=== PATIENT | male | born 1965 | race Hispanic/Latino ===

== ENCOUNTER 2022-01-04 17:17 | Emergency (ER) | payer BC ==
[2022-01-04] MEDS ORDERED: HYDROcodone/Acetaminophen 5/325 mg Tablet ONE (18:02)
== END 2022-01-04 18:47 | disposition home or self-care (01) ==
LOC: ERS 17:17
DX: M51.26 Other intervertebral disc displacement, lumbar region (principal); I10 Essential (primary) hypertension; E78.5 Hyperlipidemia, unspecified; E11.9 Type 2 diabetes mellitus without complications; Z79.84 Long term (current) use of oral hypoglycemic drugs
CPT/HCPCS: 72131

== ENCOUNTER 2023-12-17 10:39 | Observation (INO) | payer BC, OTHER ==
[2023-12-17 11:09] LABS: #Basophils 0.06 10x3/uL (0.0-0.2); %Basophils 0.5 % (0.0-1.0); %Eosinophils 1.1 % (0.0-10.0); %Lymphocytes 11.3 % (21.0-51.0); %Monocytes 11.9 % (0.0-10.0); %Neutrophils 74.6 % (42.0-75.0); Hematocrit 46.4 % (42.0-52.0); Hemoglobin 15.1 g/dL (14.0-18.0); Mean Corpuscular HGB CONC 32.5 g/dL (32.0-36.0); Mean Corpuscular Hemoglobin 27.5 pg (27.0-31.0); Mean Corpuscular Volume 84.4 fL (78.0-98.0); Mean Platelet Volume 10.4 fL (7.4-10.4); Platelet Count 241 10x3/uL (130-400); RBC Distribution Width 15.4 % (11.5-14.5)
[2023-12-17 11:25] LABS: ALT (SGPT) 17 U/L (8-55); AST (SGOT) 16 U/L (5-34); Albumin 3.3 g/dL (3.5-5.0); Alkaline Phosphatase 62 U/L (40-110); Anion Gap 11 mmol/L (10-20); BUN (Urea Nitrogen) 9 mg/dL (8.4-25.7); Bilirubin, Total 0.9 mg/dL (0.2-1.2); Calc. Creatinine Clearance 0 mL/min (70-130); Calcium 8.7 mg/dL (7.8-10.44); Carbon Dioxide 22 mmol/L (22-29); Chloride 106 mmol/L (98-107); Estimated GFR 101; Globulin 4.2 g/dL (2.4-3.5); Glucose 207 mg/dL (70-105); Potassium 4.4 mmol/L (3.5-5.1); Protein, Total 7.5 g/dL (6.0-8.3); Sodium 135 mmol/L (136-145)
[2023-12-17] MEDS ORDERED: Aspirin Chewable 81 MG TAB ONE (13:00)
[2023-12-17] MEDS ORDERED: Dextrose 5% in Water 1,000 ML IV PRN (15:48)
[2023-12-17] MEDS ORDERED: Insulin Lispro 100 UNIT/ML 10 ML VIAL SC PRN ×2 (15:48)
[2023-12-17] MEDS ORDERED: Dextrose 50% Abboject 50 ML SYRINGE SLOW IVP PRN (15:48)
[2023-12-17] MEDS ORDERED: Glucagon 1 MG/ML KIT IM PRN (15:48)
[2023-12-17] MEDS ORDERED: Lorazepam 2 MG/ML VIAL IM PRN (15:54)
[2023-12-17] MEDS ORDERED: Lorazepam 1 MG TAB PO PRN (15:54)
[2023-12-17] MEDS ORDERED: Ondansetron ODT 4 MG TAB PO PRN (15:54)
[2023-12-17] MEDS ORDERED: Multivit, Therapeutic 1 TAB PO SCH (16:00)
[2023-12-17] MEDS ORDERED: Folic Acid 1 MG TAB PO SCH (16:00)
[2023-12-17] MEDS ORDERED: Electrolyte Replacement Protocol 1 EACH FS SCH (16:00)
[2023-12-17] MEDS ORDERED: hydrALAZINE 20 MG/ML VIAL SLOW IVP PRN (16:07)
[2023-12-17] MEDS ORDERED: Senokot S 8.6-50 MG TAB PO PRN (16:09)
[2023-12-17] MEDS ORDERED: Calcium Carbonate 500 MG ChewTAB PO PRN (16:09)
[2023-12-17 16:51] LABS: Phosphorus 3.5 mg/dL (2.3-4.7)
[2023-12-17 16:53] LABS: Magnesium 2.1 mg/dL (1.6-2.6)
[2023-12-17 16:57] LABS: Troponin I Less than 0.010 ng/mL (< 0.028)
[2023-12-17] MEDS: Acetaminophen 325 MG TAB PO PRN (17:52)
[2023-12-17] MEDS: Thiamine HCl 200 MG/2 ML VIAL SLOW IVP SCH (17:53)
[2023-12-17 18:14] VITALS: BP 173/93; TEMP 98
[2023-12-17 18:18] VITALS: BMI 32.9
[2023-12-17 18:36] LABS: Amphetamine Not Detected (NotDetected); Barbiturates Screen Not Detected (NotDetected); Benzodiazepine Screen Not Detected (NotDetected); Cocaine Metabolite Screen Detected (NotDetected); Methadone Not Detected (NotDetected); Methamphetamine Not Detected (NotDetected); Opiate Screen Not Detected (NotDetected); Oxycodone Screen Not Detected (NotDetected); Phencyclidine (PCP) Not Detected (NotDetected); THC/Cannabinoid Screen Detected (NotDetected); Tricyclic Screen Not Detected (NotDetected)
[2023-12-17] MEDS ORDERED: Atorvastatin Calcium 40 MG TAB PO SCH (21:00)
[2023-12-17] MEDS ORDERED: Cyanocobalamin (Vitamin B-12) 1,000 MCG TAB PO SCH (21:00)
[2023-12-18] MEDS ORDERED: Folic Acid 1 MG TAB PO SCH (09:00)
[2023-12-18] MEDS ORDERED: FLU (Fluarix Triv) TS24-25(6MOS UP)/PF 45 MCG/0.5 ML Syringe IM ONE (09:00)
[2023-12-18] MEDS ORDERED: Aspirin 81 mg Enteric Coated Tablet PO SCH (09:00)
[2023-12-18] MEDS ORDERED: Multivit, Therapeutic 1 TAB PO SCH (09:00)
[2023-12-18] MEDS ORDERED: Heparin 5,000 UNITS/ML VIAL SC SCH (09:00)
[2023-12-18] MEDS ORDERED: Lorazepam 1 MG TAB PO PRN (15:54)
[2023-12-19] MEDS ORDERED: Lorazepam 1 MG TAB PO PRN (15:54)
[2023-12-20] MEDS ORDERED: Lorazepam 0.5 MG TAB PO PRN (15:54)
[2023-12-20] MEDS ORDERED: Thiamine 100 MG TAB PO SCH (16:00)
== END 2023-12-17 20:30 | disposition left against medical advice (07) ==
LOC: ERS 10:39 → 2SE 12:42
PROVIDERS: ADMIT Internal Medicine; ATTEND Internal Medicine
DX: R29.818 Other symptoms and signs involving the nervous system (principal); R42 Dizziness and giddiness; R29.810 Facial weakness; I10 Essential (primary) hypertension; E11.9 Type 2 diabetes mellitus without complications; E78.5 Hyperlipidemia, unspecified; F17.200 Nicotine dependence, unspecified, uncomplicated; Z79.84 Long term (current) use of oral hypoglycemic drugs; Z79.899 Other long term (current) drug therapy
CPT/HCPCS: 36415; 36416; 70450; 80053; 80306; 80307; 82607; 83735; 84100; 84484; 85025; 93005; 94760; 96374; G0378; J3411

== ENCOUNTER 2024-01-30 18:59 | Emergency (ER) | payer BC ==
[2024-01-30 19:48] LABS: #Basophils 0.09 10x3/uL (0.0-0.2); %Basophils 0.7 % (0.0-1.0); %Eosinophils 0.7 % (0.0-10.0); %Lymphocytes 13.7 % (21.0-51.0); %Monocytes 12.3 % (0.0-10.0); %Neutrophils 68.6 % (42.0-75.0); Hematocrit 38.3 % (42.0-52.0); Mean Corpuscular HGB CONC 33.9 g/dL (32.0-36.0); Mean Corpuscular Hemoglobin 27.4 pg (27.0-31.0); Mean Corpuscular Volume 80.6 fL (78.0-98.0); Mean Platelet Volume 10.4 fL (7.4-10.4); Platelet Count 369 10x3/uL (130-400); RBC Distribution Width 13.5 % (11.5-14.5); Red Blood Cell (RBC) Count 4.75 mill/uL (4.70-6.10)
[2024-01-30 20:23] LABS: ALT (SGPT) 24 U/L (8-55); AST (SGOT) 16 U/L (5-34); Albumin 2.9 g/dL (3.5-5.0); Alkaline Phosphatase 77 U/L (40-110); Anion Gap 14 mmol/L (10-20); BUN (Urea Nitrogen) 12 mg/dL (8.4-25.7); Bilirubin, Total 0.2 mg/dL (0.2-1.2); CRP,High Sensitivity (Inhouse) 4.25 mg/dL (< or = 0.5); Calc. Creatinine Clearance 0 mL/min (70-130); Calcium 9.2 mg/dL (7.8-10.44); Carbon Dioxide 21 mmol/L (22-29); Chloride 106 mmol/L (98-107); Estimated GFR 99; Globulin 5.1 g/dL (2.4-3.5); Glucose 231 mg/dL (70-105); Potassium 4.1 mmol/L (3.5-5.1); Sodium 137 mmol/L (136-145)
[2024-01-30] MEDS ORDERED: Acetaminophen 500 MG TAB ONE ×2 (20:34→20:35)
[2024-01-30] MEDS ORDERED: Ketorolac Tromethamine 30 MG (1 mL) VIAL ONE (21:43)
== END 2024-01-30 21:53 | disposition home or self-care (01) ==
LOC: ERS 18:59
DX: M70.32 Other bursitis of elbow, left elbow (principal); E11.9 Type 2 diabetes mellitus without complications; I10 Essential (primary) hypertension; K21.9 Gastro-esophageal reflux disease without esophagitis; F17.210 Nicotine dependence, cigarettes, uncomplicated; W01.0XXA Fall on same level from slipping, tripping and stumbling without subsequent striking against object, initial encounter; Z79.84 Long term (current) use of oral hypoglycemic drugs; Z79.899 Other long term (current) drug therapy
CPT/HCPCS: 80053; 83605; 85025; 86141; 99283; J1885

== ENCOUNTER 2025-01-02 07:48 | Outpatient (CLI) | payer BC ==
[2025-01-02] MEDS ORDERED: Iopamidol 370 76% 100 ML VIAL ONE (10:31)
== END 2025-01-02 09:10 | disposition home or self-care (01) ==
LOC: CT 07:48
PROVIDERS: ATTEND Family Medicine
DX: R31.9 Hematuria, unspecified (principal); I25.10 Atherosclerotic heart disease of native coronary artery without angina pectoris; I70.0 Atherosclerosis of aorta
CPT/HCPCS: 74178; Q9967